=== PATIENT | female | born 1995 | race American Indian/Alaskan Native ===

== ENCOUNTER 2017-02-07 01:25 | Emergency (ER) | payer MEDICAID ==
[2017-02-07] MEDS ORDERED: ZOFRAN ODT ONE (01:44)
[2017-02-07] MEDS ORDERED: ZOFRAN ODT PO ONE (01:45)
[2017-02-07 02:37] LABS: Bacteria,Urine 1+ /HPF (Negative); Bilirubin,Urine NEG (Negative); Blood,Urine NEG (Negative); Ketones,Urine NEG (Negative); Leukocyte Esterase,Urine NEG (Negative); Mucus,Urine FEW /HPF; Nitrite,Urine NEG (Negative); Protein,Urine <15 mg/dL mg/dL (Negative); Urobilinogen,Urine < 2.0 mg/dL (<2.0)
[2017-02-07 02:55] LABS: Basophils % (Auto) 0.1 % (0.0-1.8); Eosinophils % (Auto) 0.1 % (0.0-4.3); Hematocrit 43.6 % (30.3-42.9); Hemoglobin 14.1 gm/dl (10.1-14.3); Mean Corpuscular HGB Conc 32 % (30-34); Mean Corpuscular Hemoglobin 26 pg (28-32); Mean Corpuscular Volume 81 fl (79-97); Platelet Count 320 K/mm3 (140-440); Red Blood Count 5.36 M/mm3 (3.65-5.03); Red Cell Distribution Width 14.8 % (13.2-15.2); White Blood Count 7.4 K/mm3 (4.5-11.0)
[2017-02-07 02:59] LABS: Alanine Aminotransferase 22 units/L (7-56); Albumin 4.5 g/dL (3.9-5); Albumin/Globulin Ratio 1.1 %; Alkaline Phosphatase 63 units/L (35-129); Anion Gap 24 mmol/L; BUN/Creatinine Ratio 11.42; Blood Urea Nitrogen 8 mg/dL (7-17); Calcium 9.3 mg/dL (8.4-10.2); Carbon Dioxide 18 mmol/L (22-30); Chloride 96.2 mmol/L (98-107); Glucose 109 mg/dL (65-100); Lipase 61 units/L (13-60); Potassium 3.8 mmol/L (3.6-5.0); Sodium 134 mmol/L (137-145); Total Protein 8.5 g/dL (6.3-8.2)
[2017-02-07] MEDS ORDERED: TYLENOL PO ONE (06:13)
[2017-02-07] MEDS ORDERED: NACL 0.9% 1000 ML 1,000 ML IV ONE ×2 (09:07→10:27)
--- NOTE | 2017-02-07 09:09 | Emergency Department Report ---
HPI - General Chief Complaint: Abdominal Pain Time Seen by Provider: 02/07/17 08:51 - HPI HPI: This is a 21-year-old Afro-[place] female presents the emergency department, brought in by her mother, with complaint of some generalized abdominal cramping and persistent nausea and vomiting since yesterday at about 10 AM. She denies any recent travel, sick contacts at home, or any undercooked foods. She does not have any past medical history. She did not take anything for her symptoms prior to presentation. She does not have a primary care doctor but does have an [employer]. She denies any dysuria, vaginal bleeding or discharge, fever. ED Past Medical Hx - Past Medical History Previous Medical History?: Yes Hx Hypertension: No Hx Congestive Heart Failure: No Hx Diabetes: No Hx Deep Vein Thrombosis: No Hx Renal Disease: No (PYELONEPHRITIS THIS ) Hx Sickle Cell Disease: No Hx Seizures: No Hx Asthma: Yes (inhaler used 3weeks ago for SOB) Hx COPD: No Hx HIV: No Additional medical history: Childbirth by . Prior STDs, Herpes, GBS Positive - Surgical History Past Surgical History?: Yes Additional Surgical History: Apr 15, 2013 - Social History Smoking Status: Never Smoker Substance Use Type: None - Medications Home Medications: Home Medications Medication Instructions Recorded Confirmed Last Taken Type Ondansetron [Zofran Odt] 4 mg PO Q8H PRN #10 tab.rapdis 02/07/17 Unknown Rx ED Review of Systems ROS: Stated complaint: ABDOMINAL PAIN, VOMITING Other details as noted in HPI Comment: All other systems reviewed and negative Constitutional: denies: chills, fever Eyes: denies: eye pain, eye discharge, vision change ENT: denies: ear pain, throat pain Respiratory: denies: cough, shortness of breath, wheezing Cardiovascular: denies: chest pain, palpitations Gastrointestinal: abdominal pain, nausea, vomiting Genitourinary: denies: urgency, dysuria, discharge Musculoskeletal: denies: back pain, joint swelling, arthralgia Skin: denies: rash, lesions Neurological: denies: headache, weakness, paresthesias Physical Exam - Physical Exam Vital Signs: Vital Signs 02/07/17 02/07/17 02/07/17 01:28 06:12 07:47 Temperature 98.1 F 98.4 F Pulse Rate 95 H 82 79 Respiratory 22 20 16 Rate Blood Pressure 105/72 Blood Pressure 105/64 102/54 [Right] O2 Sat by Pulse 100 100 99 Oximetry Physical Exam: GENERAL: The patient is well-developed well-nourished. HEENT: Normocephalic. Atraumatic. Extraocular motions are intact. Patient has moist mucous membranes. Pupils equal reactive to light bilaterally. NECK: Supple. Trachea is midline. CHEST/LUNGS: Clear to auscultation. There is no respiratory distress noted. HEART/CARDIOVASCULAR: Regular. There is no tachycardia. There is no gallop rub or murmur. ABDOMEN: Abdomen is soft, nontender. Unable to reproduce abdominal pain/ cramping to palpation. No guarding or rebound tenderness. Patient has normal bowel sounds. There is no abdominal distention. No peritoneal signs. SKIN: Skin is warm and dry. NEURO: The patient is awake, alert, and oriented. The patient is cooperative. The patient has no focal neurologic deficits. The patient has normal speech. MUSCULOSKELETAL: There is no tenderness or deformity. There is no limitation range of motion. There is no evidence of acute injury. ED Course Vital Signs 02/07/17 02/07/17 02/07/17 01:28 06:12 07:47 Temperature 98.1 F 98.4 F Pulse Rate 95 H 82 79 Respiratory 22 20 16 Rate Blood Pressure 105/72 Blood Pressure 105/64 102/54 [Right] O2 Sat by Pulse 100 100 99 Oximetry ED Medical Decision Making - Lab Data Result diagrams: 02/07/17 01:53 02/07/17 01:35 - Radiology Data Radiology results: report reviewed, image reviewed interpreted by me: X-ray of the abdomen shows a large amount of nonspecific bowel gas with some sporadic air-fluid levels. No overt signs of obstruction. ULTRASOUND ABDOMEN COMPLETE: Technique: Transabdominal ultrasound with color Doppler interrogation. History: abdominal pain. Findings: The liver is normal size, contour and echotexture. The gallbladder dimensions are within normal limits without intraluminal stone, wall thickening, or pericholecystic fluid. The common bile duct was not visualized. The visualized portions of the pancreas including the head and proximal body are within normal limits. The kidneys demonstrate no hydronephrosis or mass. Cortical thickness and echogenicity are within normal limits bilaterally. The spleen and aorta are within normal limits. No aneurysmal dilatation is noted. No ascites. The bladder is unremarkable. IMPRESSION: Unremarkable abdominal ultrasound. Transcribed By: TTR Dictated By: MAX WILKINS JR, MD Electronically Authenticated By: MAX WILKINS JR, MD Signed Date/Time: 02/07/17 1220 - Medical Decision Making 21-year-old female presents with some intermittent abdominal cramping/pain as well as some sustained nausea and vomiting. The pain is mild to moderate when it occurs. The nausea and vomiting is improved after the patient got Zofran ODT through triage. Her labs are unremarkable including no signs of infection in the blood or urine, patient is not , no electrolyte abnormalities, no renal insufficiency or glucose abnormalities. She has normal belly labs including bilirubin, lipase and LFT. An abdominal x-ray was done that shows some increased bowel gas and a few sporadic air-fluid levels but nothing that shows overt signs of obstruction. However the family has concern that this is a similar presentation to a kidney infection the patient had in the past. For further evaluation and abdominal ultrasound that included the use of the kidneys was done but was an unremarkable examination. Vital signs stable throughout her ED course. Patient able to keep down some fluid in the emergency department. All these reasons patient appears safe for discharge home to follow-up with her primary care doctor. She was prescribed Zofran and encouraged to increase oral rehydration. She will return to the ER with any worsening of her symptoms or any acute distress. - Differential Diagnosis food poisoning, , colitis, pancreatitis, cholecystitis Critical Care Time: No Critical care attestation.: If time is entered above; I have spent that time in minutes in the direct care of this critically ill patient, excluding procedure time. ED Disposition Clinical Impression: Dehydration Abdominal pain Qualifiers: Abdominal location: unspecified location Qualified Code(s): R10.9 - Unspecified abdominal pain Nausea & vomiting Qualifiers: Vomiting type: unspecified Vomiting Intractability: non-intractable Qualified Code(s): R11.2 - Nausea with vomiting, unspecified Disposition: DISCHARGED TO HOME OR SELFCARE Is pt being admited?: No Condition: Stable Instructions: Abdominal Pain (ED), Acute Nausea and Vomiting (ED), Dehydration (ED) Additional Instructions: Please increase your oral rehydration. Please follow-up with your primary care doctor in the next few days. Return to the emergency department with any worsening of your symptoms or any acute distress. Prescriptions: Ondansetron [Zofran Odt] 4 mg PO Q8H PRN #10 tab.rapdis PRN Reason: Nausea Referrals: PRIMARY CARE, [Primary Care Provider] - 3-5 Days Time of Disposition: 12:38
--- NOTE | 2017-02-07 09:45 | XRay Report ---
ABDOMEN, 2 VIEWS: History: Abdominal pain. Findings: Multiple small air-fluid levels are identified throughout the abdomen. No dilated bowel or free air is identified. No pathologic calcifications. Normal stool in the colon. Heart and mediastinal structures are normal. The lung dias are clear. Impression: Findings consistent with gastroenteritis or a mild diffuse ileus. No acute abdominal findings.
[2017-02-07] MEDS ORDERED: MORPHINE IV ONE (10:53)
--- NOTE | 2017-02-07 12:29 | Ultrasound Report ---
ULTRASOUND ABDOMEN COMPLETE: Technique: Transabdominal ultrasound with color Doppler interrogation. History: abdominal pain. Findings: The liver is normal size, contour and echotexture. The gallbladder dimensions are within normal limits without intraluminal stone, wall thickening, or pericholecystic fluid. The common bile duct was not visualized. The visualized portions of the pancreas including the head and proximal body are within normal limits. The kidneys demonstrate no hydronephrosis or mass. Cortical thickness and echogenicity are within normal limits bilaterally. The spleen and aorta are within normal limits. No aneurysmal dilatation is noted. No ascites. The bladder is unremarkable. IMPRESSION: Unremarkable abdominal ultrasound.
[2017-02-07 12:55] VITALS: BP 104/80
== END 2017-02-07 12:54 | disposition home or self-care (01) ==
LOC: ED 01:25
DX: E86.0 Dehydration (principal); R10.84 Generalized abdominal pain; R11.2 Nausea with vomiting, unspecified; J45.909 Unspecified asthma, uncomplicated
CPT/HCPCS: 36415; 74020; 76700; 80053; 81001; 83690; 84703; 85025; 96361; 96374; 99284; J2270; J7030; Q0162

== ENCOUNTER 2020-07-21 00:04 | Emergency (ER) | payer MEDICAID, OTHER ==
[2020-07-21] MEDS ORDERED: HYDROcodone/ACETAMINOPHEN 5-325 MG TAB PO ONE (04:16)
[2020-07-21] MEDS ORDERED: IBUPROFEN 600 MG TAB PO ONE (04:16)
[2020-07-21] MEDS ORDERED: ONDANSETRON 4 MG ODT TAB PO ONE (04:16)
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
[2020-07-21 07:01] VITALS: BP 122/72
== END 2020-07-21 06:55 | disposition home or self-care (01) ==
LOC: ED 00:04
DX: S20.219A Contusion of unspecified front wall of thorax, initial encounter (principal); M62.830 Muscle spasm of back; M62.838 Other muscle spasm; J45.909 Unspecified asthma, uncomplicated; Z98.890 Other specified postprocedural states; V89.2XXA Person injured in unspecified motor-vehicle accident, traffic, initial encounter; Y93.89 Activity, other specified; Y92.410 Unspecified street and highway as the place of occurrence of the external cause; Y99.8 Other external cause status
CPT/HCPCS: 36415; 70450; 71046; 71250; 72125; 84703; Q0162

== ENCOUNTER 2020-12-26 01:40 | Emergency (ER) | payer SELFPAY | END 2020-12-26 02:00 | disposition left against medical advice (07) | LOC: ED 01:40 | DX: R53.1 Weakness (principal); Z53.21 Procedure and treatment not carried out due to patient leaving prior to being seen by health care provider ==